=== PATIENT | male | born 2000 | race Caucasian/White ===

== ENCOUNTER 2022-01-27 18:05 | Outpatient (REF) | payer MEDICAID, SELFPAY | END 2022-01-27 18:06 | disposition home or self-care (01) | LOC: NCHCN 18:05 | PROVIDERS: Visit Provider Family Medicine | DX: R19.7 Diarrhea, unspecified (principal) | CPT/HCPCS: 84443 ==

== ENCOUNTER 2023-04-28 09:44 | Emergency (ER) | payer OTHER, SELFPAY ==
[2023-04-28 09:46] VITALS: BP 149/80; PULSE 89; RESP 18; TEMP 36.8; O2SAT 99
--- NOTE | 2023-04-28 09:47 | ED.GENADUL_ITS ---
Discharge Plan Disposition Patient Disposition: Home Discharge Details Clinical Impression: Abrasion of sclera of right eye, Corneal laceration of right eye Primary Care Provider: None,None ED Provider: Huey Bello Home Meds and New Rx's Prescriptions: New cyclopentolate 2 % drops 1 drp ophthalmic (eye) Q10M Qty: 5 0RF erythromycin 5 mg/gram (0.5 %) ointment 1 applic ophthalmic (eye) Q8H Qty: 3.5 0RF Discharge Instructions Instructions: Corneal Abrasion (ED) Additional Instructions: You were seen in the emergency department for your eye pain. You have an abrasion of your cornea in your sclera for which you are receiving antibiotics that you should use as directed after you are seen by the eye doctor today. Please go directly to [facility]. A prescription has also been sent for a pain medicine to use in your eye as needed this is called cyclopentolate. For your pain please take medications as follows: 1. Take acetaminophen (Tylenol), 1,000 mg (two 500 mg tabs) every 6 hours 2. Take ibuprofen (Advil), 400 mg every 6 hours. Discharge Data Discharge Date/Time-TO BE ENTERED AT DEPARTURE: 04/28/23 10:24 Medical Decision Making HPI This is a 22-year-old previously healthy male with no past medical history who received his immunizations during childhood arriving via private vehicle following an injury to his right eye pain. Patient reports that he was lawnmowing without safety glasses. He says that he feels that a crab Apple hit him in his right eye. He feels burning and pressure in his right eye. He was knocked to the ground but he did not lose consciousness nor strike his head. He does not wear contact lenses. He wears reading glasses. He does not feel that he has any retained foreign bodies in his right eye. No prior episode of similar symptoms in the past. Exam General: Well-appearing in no acute distress speaking in complete sentences. Head: Normocephalic, atraumatic. Eye: [Pupils equal, round reactive to light.] Extraocular eye movements intact. No scleral icterus. Right eye: Patient has on external inspection injected cornea with signs of ecchymosis to the approximately 3 o'clock position off of that visual axis. Lids and lashes appear intact. On slit-lamp exam patient has no cells nor flare in the anterior chamber which was deep and quiet. No hyphema. On fluorescein stain patient has negative Gerri sign. Patient does have increased uptake over what appears to be a scleral abrasion. No obvious foreign body on right eyelid eversion. Visual acuity as documented by nursing bilaterally was 20/15. Right eye was 20/30 and left eye was 20/20. Ear, nose, mouth, throat: Grossly normal inspection. Normal voice, handling secretions normally. Neck: Trachea midline. Cardiovascular: Well-perfused distal extremities. Respiratory: Nonlabored respiration. Gastrointestinal: Nondistended abdomen. Musculoskeletal: No edema. Moving all 4 extremities spontaneously. Skin: Normal for age and race, grossly normal temperature and turgor. No acute rash. Neurologic: Alert and appropriate, no apparent acute deficits. Psychiatric: Mood and manner are appropriate. Grooming and personal hygiene are appropriate. MDM This is an uncomfortable appearing normothermic and not tachycardic 22-year-old male with right corneal laceration and scleral abrasion with no signs of globe rupture nor traumatic iritis. Negative Gerri sign so my suspicion is low for globe rupture. No afferent pupillary defect so doubt retrobulbar hematoma. No contact lens use so I do not feel the patient requires coverage for Pseudomonas given corneal laceration which will be treated with erythromycin ointment after patient is seen by [facility] later today. I asked health mechanical unit repairer Марина to have the patient seen by [facility]. Patient will go directly to [facility]. I have treated him with acetaminophen and ibuprofen. He also received two tetracaine drops in the ED which improved his symptoms. He did not receive a bottle of tetracaine. Given visual intact my suspicion for posterior vitreous detachment is low. I sent patient a short course of cyclopentolate to treat ciliary spasm. No indication for tetanus immunization given primary vaccines during childhood. Chronic conditions affecting the care of the patient: N/A History obtained from an outside historian: N/A External record review: No [facility] [place] EMR records Medications: Acetaminophen, ibuprofen, erythromycin ointment Social determinants of health affecting disposition: N/A Management discussed with: N/A Treatment/interventions considered: N/A Response to therapies provided: Pain controlled following tetracaine HPI General Date/Time Provider Initiated Documentation: 04/28/23 09:47 . Related Data Home Medications Medication Instructions Recorded Confirmed cyclopentolate 2 % eye drops 1 drp ophthalmic (eye) Q10M 2 04/28/23 doses #5 mL erythromycin 5 mg/gram (0.5 %) eye 1 applic ophthalmic (eye) Q8H #3.5 04/28/23 ointment grams Previous Rx's Medication Instructions Recorded cyclopentolate 2 % eye drops 1 drp ophthalmic (eye) Q10M 2 04/28/23 doses #5 mL erythromycin 5 mg/gram (0.5 %) eye 1 applic ophthalmic (eye) Q8H #3.5 04/28/23 ointment grams Allergies Allergy/AdvReac Type Severity Reaction Status Date / Time azithromycin Allergy Swelling/Ed Unverified 04/28/23 09:48 eryn PFSH All Active Problems (Updated 04/29/23 @ 13:53 by Huey Bello MD) Abrasion of sclera of right eye (Acute) Corneal laceration of right eye (Acute) Social History Smoking/Tobacco Use Status: Never Smoking risk assessment performed?: Yes Alcohol Intake: current Alcohol Intake frequency: a few times a month Substance use type: does not use
[2023-04-28] MEDS: Fluorescein STRIPS 100/BOX 1 MG OP (10:06)
== END 2023-04-28 10:24 | disposition home or self-care (01) ==
PROVIDERS: Emergency Provider Emergency Medicine
DX: S05.01XA Injury of conjunctiva and corneal abrasion without foreign body, right eye, initial encounter (principal); W20.8XXA Other cause of strike by thrown, projected or falling object, initial encounter; Y93.H2 Activity, gardening and landscaping; Y92.017 Garden or yard in single-family (private) house as the place of occurrence of the external cause; Y99.9 Unspecified external cause status
CPT/HCPCS: 99283